=== PATIENT | female | born 1940 | race Caucasian/White ===

== ENCOUNTER 2024-03-11 07:05 | Day surgery (SDC) | payer MEDICARE, SELFPAY ==
[2024-03-11 07:12] VITALS: BP 150/96; PULSE 70; RESP 18; TEMP 36.5; O2SAT 96
[2024-03-11] MEDS: Tropicam./Phenyleph. (1/2.5%) 5 ML BTL OS ×3 (07:24→07:35)
--- NOTE | 2024-03-11 07:49 | W.ANESPRE ---
General Info Date of Service Date Performed: 03/11/24 Height: 5 ft 1 in Weight: 82.3 kg Body Mass Index (BMI): 34.2 Surgical Procedure: Operation Date: 03/11/24 09:40 Proposed Procedure Side Surgeon p Cataract Extraction with IOL Implant w/Istent Left Julito Villalba MD Meds Allergies and Home Medications Allergies Allergy/AdvReac Type Severity Reaction Status Date / Time simvastatin Allergy Intermediate myalgia Verified 03/11/24 07:28 Home Medication ?Medication ?Instructions ?Recorded bimatoprost 0.03 % eye drops 1 drp ophthalmic (eye) QPM 01/24/21 hydrochlorothiazide 25 mg tablet 12.5 mg PO DAILY 01/24/21 levothyroxine 75 mcg tablet 75 mcg PO DAILY 01/24/21 omeprazole 20 mg capsule,delayed 20 mg PO DAILY 01/24/21 release potassium chloride 10 mEq 10 meq PO DAILY 01/24/21 capsule,extended release fluticasone propionate 50 1 spray intranasal DAILY PRN 03/08/24 mcg/actuation nasal spray,suspension (Allergy Relief (fluticasone)) latanoprost 0.005 % eye drops 1 drp ophthalmic (eye) DAILY 03/08/24 levothyroxine 100 mcg tablet 100 mcg PO DAILY 03/08/24 (Euthyrox) magnesium oxide-magnesium amino 1 cap PO DAILY 03/08/24 acid chelate 300 mg capsule (Magnesium (oxide/AA chelate)) meloxicam 15 mg tablet 15 mg PO DAILY 03/08/24 Current Visit Medications: Current Medications Generic Name Dose Route Start Last Admin Trade Name Freq PRN Reason Stop Dose Admin Acetaminophen 1,000 mg 03/11/24 06:00 Acetaminophen 500 Mg Tab PO 04/10/24 05:59 Q4H PRN PRN Balanced Salt Solution 500 ml 03/11/24 06:00 Balanced Salt Soln.-Plus 500 Ml Bag OP 04/10/24 05:59 DIRECTED KAI Miscellaneous Medication 0 ml 03/11/24 06:00 Prednisolone 1%, Moxifloxacin 0.5%, Bromfenac 0.09% 5.6ml Btl OS 04/10/24 05:59 DIRECTED KAI Miscellaneous Medication 0 ml 03/11/24 06:00 03/11/24 07:35 Tropicam./Phenyleph. (1/2.5%) 5 Ml Btl OS 04/10/24 05:59 1 drp DIRECTED KAI Administration Tetracaine HCl 0 ml 03/11/24 06:00 Tetracaine 0.5% 4 Ml Btl OS 04/10/24 05:59 DIRECTED KAI PFSH Active Problems Active Problems: Problem Status Onset Code Primary open-angle glaucoma, left eye, stage unspecified Acute H40.1120 Posterior subcapsular age-related cataract of left eye Acute H25.042 Nuclear age-related cataract, left eye Acute H25.12 Hypothyroidism Chronic E03.9 Hypercholesterolemia Acute E78.00 Hypertension Chronic I10 Impacted cerumen of both ears Chronic 01/29/17 H61.23 Mixed hearing loss, bilateral Chronic 12/08/13 H90.6 Sensorineural hearing loss Acute 06/06/14 H90.5 Impacted cerumen of left ear Acute H61.22 Conductive hearing loss, external ear Acute H90.2 Medical History Medical History History of gastritis History of hypokalemia Lesion of skin of face Overweight Prediabetes Insomnia H/O gastroesophageal reflux (GERD) Cognitive impairment Chronic constipation Actinic keratitis Surgical History Surgical History History of cataract extraction with lens replacement History of tonsillectomy and adenoidectomy History of surgery on wrist History of total abdominal hysterectomy and bilateral salpingo-oophorectomy History of ear surgery Right ear surgery x3 Tobacco Smoking/Tobacco Use Status: Former Tobacco Use Alcohol Alcohol Intake: never Substance Use Substance use: Never Substance use type: does not use Vital Signs and Lab Results Vital Signs Most Recent Vital Signs in EMR: Most Recent Vital Signs Temp Pulse Resp BP Pulse Ox 36.5 C 70 18 150/96 H 96 03/11/24 07:12 03/11/24 07:12 03/11/24 07:12 03/11/24 07:12 03/11/24 07:12 Lab Results Blood Type / Crossmatch: No Data to Display Complete Blood Count: No Data to Display Complete Metabolic Panel: No Data to Display Liver Function Panel: No Data to Display Coagulation Panel: No Data to Display Cardiac Panel: No Data to Display Arterial Blood Gas: No Data to Display Venous Blood Gas: No Data to Display Pancreas Panel: No Data to Display Thyroid Panel: No Data to Display Infectious Disease: No Data to Display Blood Cultures: No Data to Display Toxicology Panel: No Data to Display Anesthesia Assessment and Plan Anesthesia History Personal History: No History of Anesthesia Complications Family History: No Family History of Anesthesia Complications Exercise Tolerance Exercise Tolerance: Metabolic Equivalents<4 Pertinent Negatives Pertinent Negatives: No Symptoms of GERD, No Major Cardiovascular Symptoms or Complaints and No Major Pulmonary Symptoms or Complaints Cardiac & Pulmonary Exam Cardiac Exam: Normal S1/S2 Heart Sounds Pulmonary Exam: Clear Bilateral Breath Sounds Implantable Cardiac Device Does patient have a Pacemaker or an ICD?: No Airway Exam Known Difficult Airway: No Mallampati Class: 2 Mouth Opening: Normal (> 3cm) Thyromental Distance: Greater than 3 cm Neck Range of Motion: Full ROM Neck Circumference: Normal Teeth Condition: Removable Dentures/Plates Upper and Removable Dentures/Plates Lower ASA Classification ASA Score: ASA 3 Emergency Case?: No NPO Status NPO Status: NPO Clears >2 hours, Solids >8 hours Anesthesia Plan Resuscitation Status: Full Code Anesthesia Technique: MAC Anesthesia Airway Planned: Natural Airway Monitors Used: Standard Monitors Preoperative Comments:: First cataract was 10-15 yrs ago at [facility]
[2024-03-11 08:09] VITALS: BMI 34.2
[2024-03-11] MEDS: Tetracaine 0.5% 4 ML BTL OS (08:59)
[2024-03-11] MEDS: Lidocaine 1% Pres-Free 5 ML VIAL (09:12)
[2024-03-11] MEDS: Duovisc Viscoelastic System EACH 1 EACH ×2 (09:13→09:54)
[2024-03-11] MEDS: Phenylephrine/Lidocaine (15/10) MG/ML 1 ML VIAL (09:13)
[2024-03-11] MEDS: Povidone-Iodine Ophth 30 ML BTL (09:14)
[2024-03-11] MEDS: Balanced Salt Soln.-PLUS 500 ML BAG OP (09:14)
[2024-03-11] MEDS: Prednisolone 1%, Moxifloxacin 0.5%, Bromfenac 0.09% 5.6ML BTL OS (09:15)
[2024-03-11 10:13] VITALS: BP 146/75; PULSE 67; RESP 18; TEMP 36.6; O2SAT 96
--- NOTE | 2024-03-11 10:14 | W.PM.DSUDISC ---
Date of service: 03/11/24 Discharge Plan Disposition Patient Disposition: Home Discharge Details Attending Provider: Julito Villalba Primary Care Provider: DEBORA COLLIER Home Meds and New Rx's Prescriptions: No Action bimatoprost 0.03 % drops 1 drp ophthalmic (eye) QPM levothyroxine 75 mcg tablet 75 mcg PO DAILY hydrochlorothiazide 25 mg tablet 12.5 mg PO DAILY potassium chloride 10 mEq capsule, extended release 10 meq PO DAILY omeprazole 20 mg capsule,delayed release(DR/EC) 20 mg PO DAILY fluticasone propionate [Allergy Relief (fluticasone)] 50 mcg/actuation spray,suspension 1 spray intranasal DAILY PRN Rx Instructions: administer into each nostril levothyroxine [Euthyrox] 100 mcg tablet 100 mcg PO DAILY meloxicam 15 mg tablet 15 mg PO DAILY Magnesium (oxide/AA chelate) 300 mg capsule 1 cap PO DAILY Rx Instructions: 500 mg orally; latanoprost 0.005 % drops 1 drp ophthalmic (eye) DAILY Discharge Instructions Stand Alone Forms: [facility]SU Post-Op CataractSelvin (DSU) Discharge Orders Discharge Orders: Discharge Order (Routine); Ordered 03/11/24 Ordered By: Julito Villalba DS: Diagnosis Discharge Diagnosis (1) Posterior subcapsular age-related cataract of left eye: Status: Resolved (2) Nuclear age-related cataract, left eye: Status: Resolved
--- NOTE | 2024-03-11 10:15 | W.PM.OP ---
Operative Note Operative Note PRE-OP DIAGNOSIS: Dense nuclear/cortical cataract, left eye POST-OP DIAGNOSIS: same PROCEDURE: Cataract extraction using phacoemulsification with intraocular lens implant, left eye SURGEON: Julito Villalba ANESTHESIA TYPE: Local By Surgeon and MAC Refer to Anesthesia Record PATHOLOGY: none sent COMPLICATIONS: None Patient was transported to: same day Patient's condition: stable Implants: Vj and Vj Tecnis Eyhance [id number] Indications: Progressive decreased vision due to cataract, left eye Procedure Description: CATARACT SURGERY OPERATIVE REPORT PREOPERATIVE DIAGNOSIS: 1. Dense nuclear/cortical cataract, left eye POSTOPERATIVE DIAGNOSIS: Same OPERATION: 1. Cataract extraction using phacoemulsification with posterior chamber intraocular lens implant, left eye. IOL: IOL Thermometer Tester/Model: Vj & Vj Tecnis Eyhance DIB00 IOL Power: + 24.5 diopters IOL Serial Number: [id number] Optic Diameter: 6.0 mm Haptic/Overall Diameter: 13.0 mm PHACO INFO: Reji Confluence Life Sciencesurion Vision System with OZil and Active Fluidics Cumulative Dispersed Energy (CDE): 19.56 seconds SURGEON: Julito Villalba MD, KUMAR ANESTHESIA: Monitored [facility] [place] [place] with local sub-tenon's anesthetic infiltration COMPLICATIONS: None SPECIMENS: None INDICATIONS FOR PROCEDURE: The patient is an 83-year-old lady with history of primary open-angle glaucoma of undetermined stage who previously underwent cataract surgery in the right eye many years ago elsewhere. She has now developed a dense nuclear cataract in the left eye with visual acuity of 2080. She is a very shallow anterior chamber with aqueous depth of less than 1.7 mm. The option of cataract surgery was offered to the patient and she wished to proceed. An additional minimally invasive glaucoma surgery was initially planned, but not performed due to the complexity of the case. Patient is extremely hard of hearing, wears a hearing aid in her left ear, which we had to remove for surgery, so she was essentially completely deaf throughout the surgery. PROCEDURE: The correct surgical eye was identified and marked as the left eye and the pupil was dilated in the preoperative area using mydriatics and cycloplegics. The dilated pupil size was 6.0 mm. The patient elected to proceed without oral sedation. The patient was brought to the operating room where cardiopulmonary monitoring was instituted and surgical time-out was performed, confirming the correct operative eye and IOL power. Topical anesthesia was administered and ophthalmic povidone-iodine 5% was instilled into the conjunctival fornices. The leidy-ocular area was prepped with Betadine 10% solution and draped in the usual sterile fashion for intraocular surgery, including an aperture drape. A Tegaderm transparent film dressing was cut in half and used to cover the lashes and lid margins. Care was taken to sequester the lashes and lid margins under the Tegaderm dressing. A lid speculum was placed between the lids of the operative eye and the Reji LuxOR Revalia operating microscope was maneuvered into position. Alla scissors were then used to make a conjunctival buttonhole approximately 6mm posterior to the limbus in the inferonasal quadrant. Blunt dissection was carried out to expose bare sclera, and a blunt-tipped sub-tenon?s anesthesia cannula was introduced and passed posteriorly along the globe where non-preserved plain lidocaine was injected into posterior sub-Tenon?s space. A sideport knife was used to make a paracentesis port. The anterior chamber was noted to be extremely shallow. Intraocular phenylephrine/lidocaine was injected into the anterior chamber.. The anterior chamber was filled with viscoelastic. A keratome knife was used to construct a 2-plane near-clear corneal tunnel extending 2.0mm into clear cornea. A flap was raised on the anterior capsule and capsulorhexis forceps were used to initiate a capsulorhexis at the 3 o'clock position, extending clockwise. The patient had constant violent eye movements, and could not fixate on the microscope light, and she could not hear anything to follow directions. The eye was fixated with a second hand, but capsulorrhexis was still challenging due to the constant eye movement. The capsulorrhexis was extremely irregular, essentially a horizontal oval with ragged edges due to the continuous eye movement. Additional viscoelastic had to be injected into the anterior chamber multiple times during capsulorrhexis creation to deepen the anterior chamber, however this resulted in iris prolapse through the main incision. A second paracentesis was made at the 6 o'clock position to depressurized the eye and repositive the iris, so the capsulorrhexis could be completed with extreme difficulty. Capsule was noted to be extremely thin. Balanced salt solution was then used to perform cortical cleaving hydrodissection and nuclear hydrodelineation until the lens could be freely rotated within the capsular bag. The lens nucleus was then disassembled and removed within the capsular bag and iris plane using phacoemulsification. Residual cortical material was removed using the irrigation/aspiration handpiece. The posterior capsule was noted to be extremely thin and diaphanous.. The capsular bag was then inflated and the anterior chamber deepened with viscoelastic. The lens implant described above was inserted into the capsular bag using the Vj and Vj Simplicity pre-loaded injector. A Kuglen hook was used to dial the IOL into position with the haptics at the 6 and 12 o'clock position. Initial plan was to perform a minimally invasive glaucoma surgery, but the patient had too much eye movement and inability to cooperate to attempt this procedure. Residual viscoelastic was then removed first from posterior to the IOL, then from the anterior chamber using the I/A handpiece. The lens implant was noted to center nicely within the capsular bag. The incisions were stromally hydrated, and the anterior chamber was reformed using BSS. Miostat was then injected into the anterior chamber to draw the iris away from the corneal incisions. Then 0.5cc of moxifloxacin 1.0mg/ml were injected into the capsular bag and anterior chamber. Approximately 50% air bubble was left in the eye to help maintain anterior chamber depth. The incisions were checked with a Weck spear and found to be secure. Several drops of ophthalmic povidone-iodine 5% were then applied to the eye followed by two drops of Imprimis combination prednisolone/moxifloxacin/nepafenac solution. The drapes were removed and a clear plastic protective eye shield was placed over the eye. The patient was then returned to Same Day Surgery in stable condition. Date of Procedure: 03/11/24
--- NOTE | 2024-03-11 10:42 | W.ANESPOSTOP ---
Postoperative Evaluation Date, Time and Location Date Performed: 03/11/24 Time Performed: 10:16 Patient Location: Day Surgery Unit Vital Signs Most Recent Imported Vital Signs: Most Recent Vital Signs Temp Pulse Resp BP Pulse Ox 36.6 C 67 18 146/75 H 96 03/11/24 10:13 03/11/24 10:13 03/11/24 10:13 03/11/24 10:13 03/11/24 10:13 Pain Score Most Recent Pain Score: Most Recent Pain Score Pain Level 3 03/11/24 10:13 Assessment Mental Status: Awake (Alert & Oriented to Patient Baseline) Airway and Respiratory Function: Patent airway with normal (patient baseline) respiratory exam Cardiovascular Function: Hemodynamically Stable Hydration Status: Adequately Hydrated Nausea & Vomiting: No Nausea or Vomiting Pain: Pt. Denies Any Pain Peripheral Nerve Block: Patient did not receive a nerve block
== END 2024-03-11 10:37 | disposition home or self-care (01) ==
LOC: SUR 07:06
PROVIDERS: PCP Family Medicine; Visit Provider Ophthalmology
PROC: (CPT 66984; principal; 2024-03-11 09:30)
DX: H25.042 Posterior subcapsular polar age-related cataract, left eye (principal); Z98.41 Cataract extraction status, right eye
CPT/HCPCS: 66984; 00123; V2632; J2003